=== PATIENT | female | born 1990 | race Caucasian/White ===

== ENCOUNTER → 2024-01-15 15:41 | Outpatient (CLI) | payer OTHER, SELFPAY ==
[2024-01-16 20:26] LABS: Follicle Stimulating Hormone 5.33 mIU/mL
[2024-01-16 20:28] LABS: Prolactin 23.2 ng/mL (3.0-18.6)
[2024-01-16 20:42] LABS: TSH w/ Reflex to FT4 0.98 uIU/mL (0.47-4.68)
== END ==
PROVIDERS: PCP Physician Assistant; Visit Provider Nurse Practitioner Adult Health
DX: N91.3 Primary oligomenorrhea (principal)
CPT/HCPCS: 82397; 82670; 83001; 84146; 84443

== ENCOUNTER → 2024-11-03 13:32 | Outpatient (CLI) | payer OTHER, SELFPAY | LOC: LAB 13:32 | PROVIDERS: PCP Physician Assistant | DX: Z32.00 Encounter for pregnancy test, result unknown (principal) | CPT/HCPCS: 84702 ==

== ENCOUNTER → 2024-11-05 14:32 | Outpatient (CLI) | payer OTHER, SELFPAY | PROVIDERS: PCP Physician Assistant; Visit Provider Specialist | DX: Z32.01 Encounter for pregnancy test, result positive (principal) | CPT/HCPCS: 84702 ==

== ENCOUNTER → 2024-11-11 08:46 | Outpatient (CLI) | payer OTHER, SELFPAY ==
[2024-11-11 10:34] LABS: HCG Quantitative /Beta subunit 395.74 mIU/mL
== END ==
PROVIDERS: PCP Physician Assistant; Referring Provider Specialist; Visit Provider Specialist
DX: Z31.41 Encounter for fertility testing (principal)
CPT/HCPCS: 36415; 84702

== ENCOUNTER → 2024-11-17 11:54 | Outpatient (CLI) | payer OTHER, SELFPAY ==
[2024-11-17 20:44] LABS: HCG Quantitative /Beta subunit 27.81 mIU/mL; Progesterone, Total 1.24 ng/mL
== END ==
PROVIDERS: PCP Physician Assistant; Visit Provider Specialist
DX: Z32.00 Encounter for pregnancy test, result unknown (principal); Z31.41 Encounter for fertility testing
CPT/HCPCS: 84144; 84702

== ENCOUNTER → 2024-12-01 11:06 | Outpatient (CLI) | payer OTHER, SELFPAY ==
[2024-12-01 20:01] LABS: HCG Quantitative /Beta subunit < 2.39 mIU/mL
== END ==
PROVIDERS: PCP Physician Assistant; Visit Provider Specialist
DX: Z32.00 Encounter for pregnancy test, result unknown (principal)
CPT/HCPCS: 84702

== ENCOUNTER → 2025-05-12 13:36 | Outpatient (CLI) | payer OTHER, SELFPAY ==
[2025-05-12 19:53] LABS: Hepatitis B Surface Antigen NEGATIVE s/c (NEGATIVE)
[2025-05-12 20:12] LABS: HIV 1 & 2 Ab/Ag 4th Gen Combo NEGATIVE (NEGATIVE); Hep C Virus Ab w/Reflex Quant NEGATIVE s/c (NEGATIVE)
== END ==
PROVIDERS: PCP Physician Assistant; Referring Provider Specialist; Visit Provider Specialist
DX: Z11.59 Encounter for screening for other viral diseases (principal); Z11.3 Encounter for screening for infections with a predominantly sexual mode of transmission
CPT/HCPCS: 86780; 86803; 87340; 87389